=== PATIENT | female | born 2000 | race Caucasian/White ===

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

== ENCOUNTER 2021-08-02 10:40 | Observation (INO) | payer OTHER ==
[2021-08-02] MEDS ORDERED: SODIUM CHLORIDE 0.9% 1,000 ML IV STA (12:41)
[2021-08-02] MEDS ORDERED: KETOROLAC 15 MG/ML 1 ML VIAL IVP STA (12:41)
[2021-08-02] MEDS ORDERED: ONDANSETRON 4 MG/2 ML VIAL IVP STA (12:41)
[2021-08-02 13:36] LABS: ALT 17 U/L (4-34); AST 21 U/L (14-36); African American GFR (CKD) >90 (>60 ml/min/1.73 sqM); Albumin 4.3 g/dL (3.5-5.0); Alkaline Phosphatase 44 U/L (38-126); Anion Gap 10 mmol/L; Blood Urea Nitrogen 9 mg/dL (7-17); Calcium 9.3 mg/dL (8.4-10.2); Carbon Dioxide 24 mmol/L (22-30); Chloride 106 mmol/L (98-107); Glucose 93 mg/dL (74-99); Non-African American GFR(CKD) >90 (>60 ml/min/1.73 sqM); Sodium 140 mmol/L (137-145); Total Bilirubin 0.5 mg/dL (0.2-1.3)
[2021-08-02 13:38] LABS: Amorphous Sediment,Urine Many /hpf; Appearance,Urine Turbid (Clear); Bacteria,Urine Rare /hpf; Bilirubin,Urine Negative (Negative); Blood,Urine Trace (Negative); Color,Urine Yellow; Glucose,Urine (UA) Negative (Negative); Ketones,Urine Negative (Negative); Leukocyte Esterase,Urine Negative (Negative); Mucus,Urine Many /hpf; Nitrite,Urine Negative (Negative); PH, Urine 5.5 (5.0-8.0); Protein,Urine Trace (Negative); RBC,Urine 4 /hpf (0-5); Squamous Epithelial Cell,Urine <1 /hpf (0-4); Urobilinogen,Urine <2.0 mg/dL (<2.0); WBC,Urine 4 /hpf (0-5)
[2021-08-02 13:39] LABS: Partial Thromboplastin Time 24.1 sec (22.0-30.0); Prothrombin Time 11.3 sec (9.0-12.0)
[2021-08-02 13:42] LABS: Basophils # (A) 0.1 k/uL (0-0.2); Basophils % (A) 1 %; Eosinophils # (A) 0.1 k/uL (0-0.7); Eosinophils % (A) 1 %; HCT 41.4 % (34.0-46.0); HGB 13.8 gm/dL (11.4-16.0); Lymphocytes # (A) 0.9 k/uL (1.0-4.8); Lymphocytes % (A) 9 %; MCH 30.4 pg (25.0-35.0); MCHC 33.4 g/dL (31.0-37.0); MCV 90.8 fL (80.0-100.0); Mean Platelet Volume 8.4; Monocytes # (A) 0.3 k/uL (0-1.0); Monocytes % (A) 3 %; Neutrophils # (A) 8.5 k/uL (1.3-7.7); Neutrophils % (A) 86 %; Platelet Count 276 k/uL (150-450); RBC 4.56 m/uL (3.80-5.40); RDW 12.8 % (11.5-15.5)
--- NOTE | 2021-08-02 13:51 | ED ---
Abdominal Pain HPI - General Chief Complaint: Abdominal Pain Stated Complaint: abd pain Time Seen by Provider: 08/02/21 12:35 Source: patient Mode of arrival: wheelchair Limitations: no limitations - History of Present Illness Initial Comments: 21-year-old female presents to the emergency department with complaint of bilateral lower quadrant abdominal pain. Mother is at bedside and provides majority of the history. States that she was at work when she got a call from her son stating that her daughter was having extreme abdominal pain and was found on the bathroom floor. Her menses today. Reports that she normally does not have intense pain with her menses and this is out of the normal. She reports that she is having average bleeding, going through 1 pad every 2 hours. Denies concern for . No concern for sexually transmitted infections. No abnormal vaginal bleeding. Has had previous umbilical hernia surgery. No fevers. Denies any changes in her urination. No rectal bleeding. No other alleviating, precipitating often factors - Related Data Home Medications Medication Instructions Recorded Confirmed No Known Home Medications 08/02/21 08/02/21 Allergies Allergy/AdvReac Type Severity Reaction Status Date / Time No Known Allergies Allergy Verified 08/02/21 11:32 Review of Systems ROS Statement: Those systems with pertinent positive or pertinent negative responses have been documented in the HPI. ROS Other: All systems not noted in ROS Statement are negative. Past Medical History Past Medical History: Asthma History of Any Multi-Drug Resistant Organisms: None Reported Past Surgical History: Hernia Repair Past Psychological History: No Psychological Hx Reported Past Alcohol Use History: None Reported Past Drug Use History: None Reported General Exam Limitations: no limitations Course Vital Signs 08/02/21 08/02/21 08/02/21 11:27 14:30 15:43 Temperature 98.2 F Pulse Rate 85 61 72 Respiratory 18 18 18 Rate Blood Pressure 100/64 116/53 111/65 O2 Sat by Pulse 100 97 99 Oximetry 08/02/21 08/02/21 17:08 20:00 Temperature Pulse Rate 56 L Respiratory 18 Rate Blood Pressure 114/58 105/59 O2 Sat by Pulse 99 98 Oximetry Medical Decision Making - Medical Decision Making Upon arrival patient was placed into room 22. A thorough history and physical exam was performed. IV access established laboratory studies were conducted. She was given a liter bolus of normal saline and 15 mg of Toradol. Laboratory studies are reviewed and demonstrate no acute abnormalities. Patient originally has a ultrasound of the pelvis performed which demonstrates a left ovarian cyst and a small amount of free fluid. Appendix was not visualized and therefore the patient is sent back for CT which demonstrates concerns for early appendicitis. Patient will be admitted to Dr. Selby on-call. Antibiotics and pain control are ordered. She was made nothing by mouth after midnight for anticipated surgery in the morning. Patient agreed to this plan and she was admitted to the floor in stable condition - Lab Data Result diagrams: 08/02/21 13:03 08/02/21 13:03 Lab Results 08/02/21 08/02/21 08/02/21 Range/Units 13:03 13:03 13:03 WBC 10.0 (4.0-11.0) k/uL RBC 4.56 (3.80-5.40) m/uL Hgb 13.8 (11.4-16.0) gm/dL Hct 41.4 (34.0-46.0) % MCV 90.8 (80.0-100.0) fL MCH 30.4 (25.0-35.0) pg MCHC 33.4 (31.0-37.0) g/dL RDW 12.8 (11.5-15.5) % Plt Count 276 (150-450) k/uL MPV 8.4 Neutrophils % 86 % Lymphocytes % 9 % Monocytes % 3 % Eosinophils % 1 % Basophils % 1 % Neutrophils # 8.5 H (1.3-7.7) k/uL Lymphocytes # 0.9 L (1.0-4.8) k/uL Monocytes # 0.3 (0-1.0) k/uL Eosinophils # 0.1 (0-0.7) k/uL Basophils # 0.1 (0-0.2) k/uL PT 11.3 (9.0-12.0) sec INR 1.0 (<1.2) APTT 24.1 (22.0-30.0) sec Sodium (137-145) mmol/L Potassium (3.5-5.1) mmol/L Chloride (98-107) mmol/L Carbon Dioxide (22-30) mmol/L Anion Gap mmol/L BUN (7-17) mg/dL Creatinine (0.52-1.04) mg/dL Est GFR (CKD-EPI)AfAm (>60 ml/min/1.73 sqM) Est GFR (CKD-EPI)NonAf (>60 ml/min/1.73 sqM) Glucose (74-99) mg/dL Calcium (8.4-10.2) mg/dL Total Bilirubin (0.2-1.3) mg/dL AST (14-36) U/L ALT (4-34) U/L Alkaline Phosphatase (38-126) U/L Total Protein (6.3-8.2) g/dL Albumin (3.5-5.0) g/dL Urine Color Yellow Urine Appearance Turbid H (Clear) Urine pH 5.5 (5.0-8.0) Ur Specific Quail 1.030 (1.001-1.035) Urine Protein Trace H (Negative) Urine Glucose (UA) Negative (Negative) Urine Ketones Negative (Negative) Urine Blood Trace H (Negative) Urine Nitrite Negative (Negative) Urine Bilirubin Negative (Negative) Urine Urobilinogen <2.0 (<2.0) mg/dL Ur Leukocyte Esterase Negative (Negative) Urine RBC 4 (0-5) /hpf Urine WBC 4 (0-5) /hpf Ur Squamous Epith Cells <1 (0-4) /hpf Amorphous Sediment Many H (None) /hpf Urine Bacteria Rare H (None) /hpf Urine Mucus Many H (None) /hpf Urine HCG, Qual (Not Detectd) 08/02/21 08/02/21 Range/Units 13:03 13:03 WBC (4.0-11.0) k/uL RBC (3.80-5.40) m/uL Hgb (11.4-16.0) gm/dL Hct (34.0-46.0) % MCV (80.0-100.0) fL MCH (25.0-35.0) pg MCHC (31.0-37.0) g/dL RDW (11.5-15.5) % Plt Count (150-450) k/uL MPV Neutrophils % % Lymphocytes % % Monocytes % % Eosinophils % % Basophils % % Neutrophils # (1.3-7.7) k/uL Lymphocytes # (1.0-4.8) k/uL Monocytes # (0-1.0) k/uL Eosinophils # (0-0.7) k/uL Basophils # (0-0.2) k/uL PT (9.0-12.0) sec INR (<1.2) APTT (22.0-30.0) sec Sodium 140 (137-145) mmol/L Potassium 4.0 (3.5-5.1) mmol/L Chloride 106 (98-107) mmol/L Carbon Dioxide 24 (22-30) mmol/L Anion Gap 10 mmol/L BUN 9 (7-17) mg/dL Creatinine 0.78 (0.52-1.04) mg/dL Est GFR (CKD-EPI)AfAm >90 (>60 ml/min/1.73 sqM) Est GFR (CKD-EPI)NonAf >90 (>60 ml/min/1.73 sqM) Glucose 93 (74-99) mg/dL Calcium 9.3 (8.4-10.2) mg/dL Total Bilirubin 0.5 (0.2-1.3) mg/dL AST 21 (14-36) U/L ALT 17 (4-34) U/L Alkaline Phosphatase 44 (38-126) U/L Total Protein 7.0 (6.3-8.2) g/dL Albumin 4.3 (3.5-5.0) g/dL Urine Color Urine Appearance (Clear) Urine pH (5.0-8.0) Ur Specific Quail (1.001-1.035) Urine Protein (Negative) Urine Glucose (UA) (Negative) Urine Ketones (Negative) Urine Blood (Negative) Urine Nitrite (Negative) Urine Bilirubin (Negative) Urine Urobilinogen (<2.0) mg/dL Ur Leukocyte Esterase (Negative) Urine RBC (0-5) /hpf Urine WBC (0-5) /hpf Ur Squamous Epith Cells (0-4) /hpf Amorphous Sediment (None) /hpf Urine Bacteria (None) /hpf Urine Mucus (None) /hpf Urine HCG, Qual Not Detected (Not Detectd) Disposition Clinical Impression: Abdominal pain, Appendicitis, Menses painful Disposition: ADMITTED IP TO THIS [facility] Condition: Stable Is patient prescribed a controlled substance at d/c from ED?: No Time of Disposition: 17:20 Decision to Admit Reason: Admit from EC Decision Date: 08/02/21 Decision Time: 17:20
--- NOTE | 2021-08-02 14:09 | US ---
EXAMINATION TYPE: US transvaginal DATE OF EXAM: 08/02/2021 COMPARISON: NONE CLINICAL HISTORY: rlq pain. RLQ pain since 9:30 am. G0. TECHNIQUE: Transvaginal (TV). Transabdominal sonographic images of the pelvis were acquired. Date of LMP: 08/02/2021 EXAM MEASUREMENTS: Uterus: 7.4 x 4.0 x 3.3 cm Endometrial Stripe: 0.61 cm Right Ovary: 3.2 x 2.5 x 1.4 cm Left Ovary: 3.7 x 2.0 x 2.2 cm 1. Uterus: Anteverted Fluid seen midline anterior to the uterus: 0.5 x 1.3 x 1.1 cm. 2. Endometrium: Measured at 0.61 cm. 3. Right Ovary: Follicles seen. 4. Left Ovary: Largest anechoic area seen measures 1.3 x 1.6 x 1.3 cm. Spectral, color and waveform doppler imaging shows arterial and venous flow within the ovaries. 5. Bilateral Adnexa: Appear wnl 6. Posterior cul-de-sac: Fluid seen. IMPRESSION: 1. Left ovarian cyst. 2. Small amount of free fluid.
--- NOTE | 2021-08-02 15:29 | US ---
EXAMINATION TYPE: US abdomen APPY DATE OF EXAM: 08/02/2021 COMPARISON: NONE CLINICAL HISTORY: abd pain. Abdominal pain in the RLQ since 9:30 am. APPENDIX Is the appendix seen in its entirety from the proximal cecum to distal end: Unable to visualize the appendix by ultrasound at this time. Is there inflammatory changes or free fluid present: None seen IMPRESSION: Nonvisualization of the appendix.
--- NOTE | 2021-08-02 16:53 | CT ---
EXAMINATION TYPE: CT abdomen pelvis w con DATE OF EXAM: 08/02/2021 COMPARISON: Ultrasound performed earlier same day HISTORY: Lower abdominal pain. CT DLP: 764.7 mGycm Automated exposure control for dose reduction was used. TECHNIQUE: Helical acquisition of images was performed from the lung bases through the pelvis. CONTRAST: Performed without Oral Contrast and with IV Contrast, patient injected with 100ml mL of Isovue 300. FINDINGS: LUNG BASES: No significant abnormality is appreciated. LIVER/GB: No significant abnormality is appreciated. PANCREAS: No significant abnormality is seen. SPLEEN: No significant abnormality is seen. ADRENALS: No significant abnormality is seen. KIDNEYS: Grossly unremarkable kidneys. FREE AIR: No free air is visualized. RETROPERITONEAL ADENOPATHY: None visualized REPRODUCTIVE ORGANS: No gross uterine or adnexal mass, suboptimally assessed by this CT scan. URINARY BLADDER: No significant abnormality is seen. PELVIC ADENOPATHY: No pathologically enlarged pelvic lymph nodes. OSSEOUS STRUCTURES: No significant abnormality is seen. BOWEL: Suboptimal assessment of the small and large bowel due to paucity of intra-abdominal fat and lack of oral contrast administration. No evidence of bowel obstruction. Segments of mild nonspecific colonic wall thickening. Mild colitis cannot be excluded. The appendix diameter measures up to 7.4 mm with slight wall hyperenhancement and minimal adjacent peritoneal reflection thickening. Mild acute appendicitis cannot be excluded. Peritoneal fat stranding is seen in the pelvis, nonspecific. This co uld be reactive or due to mild peritonitis. OTHER: Minimal free pelvic fluid, possibly physiological. IMPRESSION: Borderline appendix as described above. Mild acute appendicitis cannot be excluded. Recommend clinica l correlation and surgical consultation if required. Other subtle bowel and peritoneal findings as de scribed above.
[2021-08-02] MEDS ORDERED: ACETAMINOPHEN TAB 325 MG TAB PO PRN (17:20)
[2021-08-02] MEDS ORDERED: IBUPROFEN 400 MG TAB PO PRN (17:20)
[2021-08-02] MEDS ORDERED: ONDANSETRON 4 MG/2 ML VIAL IVP PRN (17:20)
[2021-08-02] MEDS ORDERED: MORPHINE SULFATE 4 MG/ML SYRINGE IV PRN (17:20)
[2021-08-02] MEDS ORDERED: NALOXONE 0.4 MG/ML 1 ML VIAL IV PRN (17:20)
[2021-08-02] MEDS ORDERED: PIPERACILLIN-TAZOBACTAM 3.375 GM in SODIUM CHLORIDE 0.9% 100 ML IVPB ONE (17:30)
[2021-08-02] MEDS: HYDROcodone/APAP 5-325MG 1 EACH TAB PO PRN ×2 (17:53→22:15)
[2021-08-02] MEDS: SODIUM CHLORIDE 0.9% 1,000 ML IV SCH (17:55)
[2021-08-03] MEDS: PIPERACILLIN-TAZOBACTAM 3.375 GM in SODIUM CHLORIDE 0.9% 100 ML IVPB SCH ×4 (00:03→23:01)
[2021-08-03] MEDS: SODIUM CHLORIDE 0.9% 1,000 ML IV SCH ×4 (00:04→23:00)
[2021-08-03 10:30] LABS: Basophils # (A) 0.07 X 10*3/uL (0.00-0.10); Eosinophils # (A) 0.38 X 10*3/uL (0.04-0.35); Eosinophils % (A) 5.7 %; Immature Grans, Automated 0.3 %; Lymphocytes % (A) 32.7 %; MCH 29.4 pg (27.0-32.0); MCHC 32.4 g/dL (32.0-37.0); MCV 90.7 fL (80.0-97.0); Mean Platelet Volume 11.5 fL (9.5-12.2); Monocytes % (A) 8.9 %; NRBC Per 100 WBC 0 /100 WBCS (0.0-0.0); Neutrophils # (A) 3.45 X 10*3/uL (1.80-7.70); Neutrophils % (A) 51.4 %; Platelet Count 246 X 10*3/uL (140-440); RBC 4.08 X 10*6/uL (4.10-5.20); RDW 12.4 % (11.5-14.5); WBC 6.72 X 10*3/uL (4.50-10.00)
[2021-08-03 10:39] LABS: African American GFR (CKD) 107.1 (60.0-200.0); Anion Gap 7.9 mmol/L (10.00-18.00); BUN/Creat Ratio 10.01 Ratio (12.00-20.00); Calcium 8.9 mg/dL (8.7-10.3); Carbon Dioxide 25.3 mmol/L (20.0-27.5); Non-African American GFR(CKD) 92.4 (60.0-200.0)
[2021-08-03] MEDS ORDERED: IV FLUID CONTINUATION 1,000 ML IV ONE (10:40)
[2021-08-03] MEDS ORDERED: ONDANSETRON 4 MG/2 ML VIAL IVP ONE (10:56)
--- NOTE | 2021-08-03 11:15 | P.GSHP ---
History of Present Illness H&P Date: 08/02/21 Chief Complaint: Acute appendicitis This a 21-year-old female who had complaints of right lower quadrant pain. Patient underwent have evidence acute appendicitis. She presents today for laparoscopic appendectomy. Past Medical History Past Medical History: Asthma Additional Past Medical History / Comment(s): states no problems with it since she was 13 years old History of Any Multi-Drug Resistant Organisms: None Reported Past Surgical History: Hernia Repair Past Psychological History: No Psychological Hx Reported Smoking Status: Never smoker Past Alcohol Use History: Occasional Past Drug Use History: None Reported Medications and Allergies Home Medications Medication Instructions Recorded Confirmed Type No Known Home Medications 08/02/21 08/02/21 History Allergies Allergy/AdvReac Type Severity Reaction Status Date / Time No Known Allergies Allergy Verified 08/02/21 11:32 Surgical - Exam Vital Signs Temp Pulse Resp BP Pulse Ox 98.2 F 85 18 100/64 100 08/02/21 11:27 08/02/21 11:27 08/02/21 11:27 08/02/21 11:27 08/02/21 11:27 - General well developed, well nourished, no distress - Eyes PERRL - ENT normal pinna - Neck no masses - Respiratory normal expansion - Cardiovascular Rhythm: regular - Abdomen Mild tenderness right lower quadrant Abdomen: soft Results - Labs 08/03/21 06:47 08/03/21 06:47 Abnormal Lab Results - Last 24 Hours (Table) 08/02/21 08/02/21 08/03/21 Range/Units 13:03 13:03 06:47 RBC 4.08 L (4.10-5.20) X 10*6/uL Hct 37.0 L (37.2-46.3) % Neutrophils # 8.5 H (1.3-7.7) k/uL Lymphocytes # 0.9 L (1.0-4.8) k/uL Eosinophils # 0.38 H (0.04-0.35) X 10*3/uL Chloride (96-109) mmol/L Anion Gap (10.00-18.00) mmol/L BUN/Creatinine Ratio (12.00-20.00) Ratio Urine Appearance Turbid H (Clear) Urine Protein Trace H (Negative) Urine Blood Trace H (Negative) Amorphous Sediment Many H (None) /hpf Urine Bacteria Rare H (None) /hpf Urine Mucus Many H (None) /hpf 08/03/21 Range/Units 06:47 RBC (4.10-5.20) X 10*6/uL Hct (37.2-46.3) % Neutrophils # (1.3-7.7) k/uL Lymphocytes # (1.0-4.8) k/uL Eosinophils # (0.04-0.35) X 10*3/uL Chloride 110 H (96-109) mmol/L Anion Gap 7.90 L (10.00-18.00) mmol/L BUN/Creatinine Ratio 10.01 L (12.00-20.00) Ratio Urine Appearance (Clear) Urine Protein (Negative) Urine Blood (Negative) Amorphous Sediment (None) /hpf Urine Bacteria (None) /hpf Urine Mucus (None) /hpf Diabetes panel 08/02/21 08/03/21 Range/Units 13:03 06:47 Sodium 140 143 (137-145) mmol/L Potassium 4.0 4.0 (3.5-5.1) mmol/L Chloride 106 110 H (98-107) mmol/L Carbon Dioxide 24 25.3 (22-30) mmol/L BUN 9 9.0 (7-17) mg/dL Creatinine 0.78 0.9 (0.52-1.04) mg/dL Glucose 93 93 (74-99) mg/dL Calcium 9.3 8.9 (8.4-10.2) mg/dL AST 21 (14-36) U/L ALT 17 (4-34) U/L Alkaline Phosphatase 44 (38-126) U/L Total Protein 7.0 (6.3-8.2) g/dL Albumin 4.3 (3.5-5.0) g/dL Calcium panel 08/02/21 08/03/21 Range/Units 13:03 06:47 Calcium 9.3 8.9 (8.4-10.2) mg/dL Albumin 4.3 (3.5-5.0) g/dL Pituitary panel 08/02/21 08/03/21 Range/Units 13:03 06:47 Sodium 140 143 (137-145) mmol/L Potassium 4.0 4.0 (3.5-5.1) mmol/L Chloride 106 110 H (98-107) mmol/L Carbon Dioxide 24 25.3 (22-30) mmol/L BUN 9 9.0 (7-17) mg/dL Creatinine 0.78 0.9 (0.52-1.04) mg/dL Glucose 93 93 (74-99) mg/dL Calcium 9.3 8.9 (8.4-10.2) mg/dL Adrenal panel 08/02/21 08/03/21 Range/Units 13:03 06:47 Sodium 140 143 (137-145) mmol/L Potassium 4.0 4.0 (3.5-5.1) mmol/L Chloride 106 110 H (98-107) mmol/L Carbon Dioxide 24 25.3 (22-30) mmol/L BUN 9 9.0 (7-17) mg/dL Creatinine 0.78 0.9 (0.52-1.04) mg/dL Glucose 93 93 (74-99) mg/dL Calcium 9.3 8.9 (8.4-10.2) mg/dL Total Bilirubin 0.5 (0.2-1.3) mg/dL AST 21 (14-36) U/L ALT 17 (4-34) U/L Alkaline Phosphatase 44 (38-126) U/L Total Protein 7.0 (6.3-8.2) g/dL Albumin 4.3 (3.5-5.0) g/dL Assessment and Plan Assessment: Acute appendicitis. We'll perform laparoscopic appendectomy.
[2021-08-03] MEDS ORDERED: ROCURONIUM 10 MG/ML (5 ML VIAL) IV ONE (11:32)
[2021-08-03] MEDS ORDERED: LIDOCAINE 4% LTA KIT (4 ML) TOPICAL ONE (11:32)
[2021-08-03] MEDS ORDERED: LIDOCAINE 2% INJ 20 MG/ML (2 ML VIAL) ONE (11:32)
[2021-08-03] MEDS ORDERED: GLYCOPYRROLATE 0.2 MG/ML 2 ML VIAL ONE (11:32)
[2021-08-03] MEDS ORDERED: fentaNYL (PF) 50 MCG/ML 2 ML AMP ONE (11:32)
[2021-08-03] MEDS ORDERED: NEOSTIGMINE 1 MG/ML 10 ML VIAL ONE (11:32)
[2021-08-03] MEDS ORDERED: SUCCINYLCHOLINE CHLORIDE 100 MG/5 ML SYR IV ONE (11:32)
[2021-08-03] MEDS ORDERED: KETOROLAC 15 MG/ML 1 ML VIAL ONE (11:32)
[2021-08-03] MEDS ORDERED: PROPOFOL 10 MG/ML 20 ML VIAL IV ONE (11:32)
[2021-08-03] MEDS ORDERED: MIDAZOLAM 2 MG/2 ML VIAL ONE (11:32)
[2021-08-03] MEDS ORDERED: BUPIVACAIN-EPI 0.25%-1:200,000 30 ML VIAL SQ ONE ×2 (11:34→11:57)
[2021-08-03] MEDS ORDERED: LACTATED RINGERS 1,000 ML IV ONE (12:00)
--- NOTE | 2021-08-03 12:08 | P.OP ---
Date of Procedure: 08/03/21 Preoperative Diagnosis: Acute appendicitis Postoperative Diagnosis: Acute appendicitis Procedure(s) Performed: Laparoscopic appendectomy Anesthesia: JIA Surgeon: Ketan Selby Estimated Blood Loss (ml): 5 Pathology: other (Appendix) Condition: stable Disposition: PACU Description of Procedure: The patient's placed on the operating table in the supine position. The patient received general anesthesia. The abdomen was prepped and draped in the usual sterile fashion. The skin was anesthetized 1% local Xylocaine at the trocar sites. Using an 11 blade the skin was incised at the umbilicus. The umbilicus was grasped with a Hickman clamp and then a Veress needle was placed into the peritoneal cavity. Position of the Veress needle was confirmed with positive drop test. After adequate insufflation a 5 mm trocar was placed into the peritoneal cavity. The abdomen was further insufflated. And then the laparoscope was placed in the peritoneal cavity. Next a 5 mm trocar was placed in the midline suprapubic position. And then a 10 mm trocar was placed in the midline epigastric position. The patient was rotated with the right side up and in Trendelenburg. The appendix was visualized. The appendix appeared to be inflamed. The appendix was grasped and then using the Harmonic scissors the mesoappendix was divided. A PDS Endoloop was then placed around the base of the appendix. And then the appendix was divided using Harmonic scissors. The appendix was placed into an Endo Catch and brought out through the 10 mm trocar site. The abdomen was irrigated. There is no bleeding seen. The trochars withdrawn. The skin was closed interrupted 3-0 Monocryl suture. Dermabond dressing was applied. Patient was sent to recovery room in stable condition.
[2021-08-03 23:08] VITALS: RESP 16
[2021-08-04 03:47] VITALS: TEMP 98.2
[2021-08-04 07:42] VITALS: BP 105/66; PULSE 82
[2021-08-04] MEDS: PIPERACILLIN-TAZOBACTAM 3.375 GM in SODIUM CHLORIDE 0.9% 100 ML IVPB SCH (07:45)
[2021-08-04] MEDS: SODIUM CHLORIDE 0.9% 1,000 ML IV SCH (08:51)
[2021-08-04] MEDS ORDERED: IBUPROFEN 600 MG TAB PO PRN (09:28)
--- NOTE | 2021-08-04 11:22 | P.DS ---
Providers Date of admission: 08/02/21 17:20 Expected date of discharge: 08/04/21 Attending physician: Ketan Selby Primary care physician: Jose Richardson Hospital Course: Discharge diagnosis 1. Acute appendicitis status post laparoscopic appendectomy Hospital course This is a 21-year-old female presented with right lower quadrant abdominal pain. She is found have evidence of acute appendicitis. She is status post laparoscopic appendectomy. Patient tolerated surgery well. Her pain is controlled. She is having flatus. She has been up and ambulating. She is tolerating diet. She is afebrile. Incision sites are clean dry and intact except for the incision at the umbilicus there is some minimal dried blood otherwise clean dry and intact. Patient is stable for discharge. Please refer to chart for any further details. Physician Toll Testboard Worker note has been reviewed by physician. Signing provider agrees with the documented findings, assessment, and plan of care. Patient Condition at Discharge: Stable Plan - Discharge Summary New Discharge Prescriptions: New Ibuprofen [Motrin] 600 mg PO Q8HR PRN #30 tab PRN Reason: Pain Acetaminophen Tab [Tylenol] 1,000 mg PO Q6HR PRN #30 tablet PRN Reason: Pain Discharge Medication List Acetaminophen Tab [Tylenol] 1,000 mg PO Q6HR PRN #30 tablet 08/04/21 [Rx] Ibuprofen [Motrin] 600 mg PO Q8HR PRN #30 tab 08/04/21 [Rx] Follow up Appointment(s)/Referral(s): Jose Richardson DO [Primary Care Provider] - 1-2 days Ketan Selby MD [STAFF PHYSICIAN] - 1 Week Activity/Diet/Wound Care/Special Instructions: No lifting over 10 pounds Shower daily. No soaking or tub baths for 2 weeks Very light activity until you are reevaluated at your follow up appointment with your surgeon Discharge Disposition: HOME SELF-CARE
== END 2021-08-04 12:13 | disposition home or self-care (01) ==
LOC: EC 10:40 → 6NMEDSUR 17:20
PROVIDERS: ADMIT Surgery; ATTEND Surgery
DX: K35.80 Unspecified acute appendicitis (principal); J45.909 Unspecified asthma, uncomplicated; N83.202 Unspecified ovarian cyst, left side
CPT/HCPCS: 96361 ×2; 96374; 96375; 99285; 36415; 88304; 80053; 80048; 85025 ×2; 85610; 85730; 81001; 81025; 93975; 76705; 76830; 74177; 44970; G0378 ×3; J2543 ×3; J2250; J2710; J2405 ×2; J3010; J1885 ×2; J0330; J2704; Q9967; J2001